=== PATIENT | female | born 2005 | race Caucasian/White ===

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

== ENCOUNTER 2025-01-09 00:21 | Emergency (ER) | payer OTHER ==
[~2025-01-09] VITALS: Ht 165.1 cm; Wt 90.9 kg
[~2025-01-09 00:21] MED LIST: NAPR1TAB83 PO
[2025-01-09] MEDS ORDERED: METR-265 (00:32)
[2025-01-09 01:19] LABS: KETONE, URINE AUTO RFX TRACE mg/dL (NEGATIVE); MUCUS, URINE RFX MODERATE (NEGATIVE); NITRITE, URINE AUTO RFX NEGATIVE (NEGATIVE); RBC, URINE AUTO RFX 5 /HPF (0-3); SQUAM EPITHELIAL CELL UR AURFX 8 /HPF (0-6)
[2025-01-09 01:20] LABS: LEUKOCYTE ESTERASE UR AUTO RFX 2+ (NEGATIVE); WBC, URINE AUTO RFX 37 /HPF (0-3)
[2025-01-09 02:35] LABS: GC DNA AMPLIFICATION NEGATIVE (NEGATIVE)
[2025-01-09 04:29] VITALS: BP 124/86; TEMP 97.1; O2SAT 99
[2025-01-09 04:55] LABS: Trichomonas vaginalis (AMP) NOT DETECTED (NEGATIVE)
[2025-01-10] MEDS ORDERED: CIPR500T39 PO (23:34)
== END 2025-01-09 06:17 | disposition left against medical advice (07) ==
LOC: M ED 00:21
DX: Z53.21 Procedure and treatment not carried out due to patient leaving prior to being seen by health care provider (principal)

== ENCOUNTER 2025-01-10 21:00 | Emergency (ER) | payer OTHER ==
[~2025-01-10] VITALS: Ht 165.1 cm; Wt 90.9 kg
[~2025-01-10 21:00] MED LIST changes: +METR-265
[2025-01-10 22:56] LABS: URINE PREG TEST NEGATIVE (NEGATIVE)
[2025-01-10 23:04] LABS: KETONE, URINE AUTO RFX NEGATIVE (NEGATIVE); MUCUS, URINE RFX LARGE (NEGATIVE); NITRITE, URINE AUTO RFX NEGATIVE (NEGATIVE); RBC, URINE AUTO RFX 77 /HPF (0-3); SQUAM EPITHELIAL CELL UR AURFX 62 /HPF (0-6); YEAST LIKE CELL URINE AUTO RFX SMALL
[2025-01-10 23:05] LABS: LEUKOCYTE ESTERASE UR AUTO RFX 2+ (NEGATIVE); WBC, URINE AUTO RFX 49 /HPF (0-3)
[2025-01-10] MEDS ORDERED: CIPR500T39 PO (23:34)
[2025-01-10 23:41] VITALS: BP 116/69; TEMP 98.3; O2SAT 100
[2025-01-10] MEDS: CIPROFLOXACIN 500 MG TABLET PO ONE (23:44)
== END 2025-01-10 23:51 | disposition home or self-care (01) ==
LOC: M ED 21:00
DX: N10 Acute pyelonephritis (principal); F17.290 Nicotine dependence, other tobacco product, uncomplicated; Z79.899 Other long term (current) drug therapy

== ENCOUNTER 2025-01-26 16:16 | Emergency (ER) | payer OTHER ==
[~2025-01-26] VITALS: Ht 165.1 cm; Wt 88.5 kg
[~2025-01-26 16:16] MED LIST changes: +CIPR500T39 PO
[2025-01-26] MEDS: ACETAMINOPHEN 500 MG TAB PO ONE (19:24)
[2025-01-26] MEDS: KETOROLAC 30 MG/ML 1 ML VIAL IM ONE (19:24)
[2025-01-26] MEDS: LIDOCAINE 5% PATCH TD ONE (19:24)
[2025-01-26 20:06] LABS: KETONE, URINE AUTO RFX NEGATIVE (NEGATIVE); LEUKOCYTE ESTERASE UR AUTO RFX NEGATIVE (NEGATIVE); MUCUS, URINE RFX LARGE (NEGATIVE); NITRITE, URINE AUTO RFX NEGATIVE (NEGATIVE); RBC, URINE AUTO RFX 0 /HPF (0-3); SQUAM EPITHELIAL CELL UR AURFX 14 /HPF (0-6); WBC, URINE AUTO RFX 3 /HPF (0-3)
[2025-01-26 20:39] VITALS: BP 104/61; TEMP 97.8; O2SAT 100
[2025-01-26] MEDS ORDERED: METH-1165 PO (21:14)
[2025-01-26] MEDS ORDERED: MEDR4PAK PO (21:14)
== END 2025-01-26 21:53 | disposition home or self-care (01) ==
LOC: M ED 16:16
DX: S39.012A Strain of muscle, fascia and tendon of lower back, initial encounter (principal); Y92.9 Unspecified place or not applicable; Y93.9 Activity, unspecified; Y99.0 Civilian activity done for income or pay; Z79.2 Long term (current) use of antibiotics; Z79.899 Other long term (current) drug therapy
CPT/HCPCS: 81001; 96372; 99283; J1885

== ENCOUNTER → 2025-02-22 | Outpatient (REF) | payer OTHER ==
[~2025-02-22] MED LIST changes: +MEDR4PAK PO; +METH-1165 PO
[2025-02-22 14:15] LABS: AMORPHOUS SEDIMENT SMALL (NEGATIVE); APPEARANCE, URINE TURBID (CLEAR); BACTERIA, URINE AUTO NEGATIVE (NEGATIVE); BILIRUBIN, URINE AUTO NEGATIVE (NEGATIVE); BLOOD, URINE BLOOD NEGATIVE (NEGATIVE); GLUCOSE, URINE (UA) AUTO NEGATIVE (NEGATIVE); KETONE, URINE AUTO NEGATIVE (NEGATIVE); LEUKOCYTE ESTERASE, URINE AUTO 2+ (NEGATIVE); MUCUS, URINE SMALL (NEGATIVE); NITRITE, URINE AUTO NEGATIVE (NEGATIVE); PROTEIN, URINE AUTO 1+ mg/dL (NEGATIVE); RBC, URINE AUTO 11 /HPF (0-3); SPECIFIC GRAVITY URINE AUTO 1.027 (1.002-1.035); SQUAMOUS EPITHELIAL CELL UR AU 15 /HPF (0-6); UROBILINOGEN, URINE AUTO 0.2 mg/dL (0.0-2.0); WBC, URINE AUTO 106 /HPF (0-3)
== END ==
LOC: M SMT 12:52
PROVIDERS: ATTEND Nurse Practitioner Family
DX: N39.0 Urinary tract infection, site not specified (principal)